=== PATIENT | male | born 1960 | race African-American/Black ===

== ENCOUNTER 2017-09-30 09:54 | Emergency (ER) | payer SELFPAY ==
[~2017-09-30] VITALS: Ht 180.3 cm; Wt 113.4 kg
[2017-09-30] MEDS ORDERED: PRAVACHOL40 MG PO (10:06)
[2017-09-30] MEDS ORDERED: LOPRESSOR25 MG PO (10:06)
[2017-09-30 10:25] LABS: BASO # 0.1 10*3/uL (0.0-0.1); BASO % 0.6 % (0.0-1.0); EOS # 0.4 10*3/uL (0.0-0.4); EOS % 3.4 % (1.0-4.0); HEMATOCRIT 45.3 % (42.0-52.0); HEMOGLOBIN 15.1 g/dl (14.0-18.0); LYMPH # 3.8 10*3/uL (1.3-4.4); LYMPH % 32.5 % (27.0-41.0); MEAN CELL VOLUME 83.4 fl (80.0-94.0); MEAN CORPUSCULAR HGB 27.8 pg (27.0-31.0); MEAN CORPUSCULAR HGB CONC 33.3 g/dl (33.0-37.0); MEAN PLATELET VOLUME 11.1 fl (9.6-12.3); MONO # 0.7 10*3/uL (0.1-1.0); MONO % 5.6 % (3.0-9.0); NEUT # 6.7 10*3/uL (2.3-7.9); NEUT % 57.7 % (47.0-73.0); PLATELET COUNT AUTOMATED 266 10*3/uL (130-400); RED BLOOD COUNT 5.43 10*6/uL (4.50-5.90); RED CELL DISTRI WIDTH 13.9 % (0-14.5); WHITE BLOOD COUNT 11.6 10*3/uL (4.8-10.8)
[2017-09-30 10:44] LABS: ALBUMIN 3.9 gm/dl (3.1-4.5); ALKALINE PHOSPHATASE 155 U/L (45-117); BUN 11 mg/dl (7-24); CHLORIDE 105 mmol/L (98-107); CREATININE 1.13 mg/dL (0.70-1.30); LIPASE 159 U/L (73-393); POTASSIUM 3.2 mmol/L (3.5-5.1); SGOT/AST 12 IU/L (3-35); SGPT/ALT 29 U/L (12-78); SODIUM 140 mmol/L (136-145); TOTAL PROTEIN 8.2 gm/dL (6.4-8.2)
[2017-09-30 11:16] LABS: BILIRUBIN NEGATIVE (NEGATIVE); BLOOD NEGATIVE (NEGATIVE); CLARITY CLEAR (CLEAR); COLOR YELLOW (YELLOW); GLUCOSE NEGATIVE (NEGATIVE); KETONE NEGATIVE (NEGATIVE); LEUKO ESTERASE NEGATIVE (NEGATIVE); NITRITE NEGATIVE (NEGATIVE); PH 6.5 (5.0-9.0); UROBILINOGEN 0.2 E.U./dl (0.2-1.0)
== END 2017-09-30 12:29 | disposition home or self-care (01) ==
LOC: ED 09:54
PROVIDERS: Emergency Medicine
DX: K46.9 Unspecified abdominal hernia without obstruction or gangrene (principal); Z79.899 Other long term (current) drug therapy

== ENCOUNTER → 2017-10-09 | Outpatient (CLI) | payer MEDICAID ==
[~2017-10-09] MED LIST: LOPRESSOR25 MG PO; PRAVACHOL40 MG PO
== END | disposition home or self-care (01) ==
LOC: RESCLI 02:22
DX: I10 Essential (primary) hypertension (principal); E78.5 Hyperlipidemia, unspecified; R73.03 Prediabetes; M54.5 Low back pain; J30.2 Other seasonal allergic rhinitis; F33.9 Major depressive disorder, recurrent, unspecified; F20.9 Schizophrenia, unspecified; K21.9 Gastro-esophageal reflux disease without esophagitis; G47.00 Insomnia, unspecified; Z80.42 Family history of malignant neoplasm of prostate

== ENCOUNTER → 2017-10-17 | Outpatient (CLI) | payer OTHER ==
[2017-10-17 12:30] LABS: HEMATOCRIT 44.2 % (42.0-52.0); HEMOGLOBIN 14.7 g/dl (14.0-18.0); MEAN CELL VOLUME 84.8 fl (80.0-94.0); MEAN CORPUSCULAR HGB 28.2 pg (27.0-31.0); MEAN CORPUSCULAR HGB CONC 33.3 g/dl (33.0-37.0); MEAN PLATELET VOLUME 11.4 fl (9.6-12.3); PLATELET COUNT AUTOMATED 271 10*3/uL (130-400); RED BLOOD COUNT 5.21 10*6/uL (4.50-5.90); RED CELL DISTRI WIDTH 13.8 % (0-14.5); WHITE BLOOD COUNT 9.4 10*3/uL (4.8-10.8)
[2017-10-17 12:53] LABS: ALBUMIN 3.9 gm/dl (3.1-4.5); BUN 7 mg/dl (7-24); CHLORIDE 107 mmol/L (98-107); CHOLESTEROL 89 mg/dL (<200); CREATININE 1.06 mg/dL (0.70-1.30); HDL CHOLESTEROL 32 mg/dl (40-60); LDL CHOLESTEROL 39 mg/dL (9-159); POTASSIUM 3.2 mmol/L (3.5-5.1); SGOT/AST 27 IU/L (3-35); SGPT/ALT 39 U/L (12-78); SODIUM 141 mmol/L (136-145); TRIGLYCERIDES 88 mg/dl (<150); VLDL CHOLESTEROL 18 mg/dL (6-40)
[2017-10-17 13:02] LABS: ALKALINE PHOSPHATASE 154 U/L (45-117); TOTAL PROTEIN 7.9 gm/dL (6.4-8.2)
[2017-10-17 13:28] LABS: ATYPICAL LYMPHS 1 % (0-0); PLATELET SUFFICIENCY NORMAL (NORMAL); TOTAL CELLS COUNTED 100 #CELLS
[2017-10-17 13:36] LABS: VITAMIN D, 25-HYDROXY 8.6 ng/mL (30-100)
== END | disposition home or self-care (01) ==
LOC: LAB 11:41
PROVIDERS: Family Medicine
DX: Z12.5 Encounter for screening for malignant neoplasm of prostate (principal); M54.5 Low back pain; R73.03 Prediabetes; E78.5 Hyperlipidemia, unspecified; Z80.42 Family history of malignant neoplasm of prostate

== ENCOUNTER 2017-10-26 11:16 | Emergency (ER) | payer OTHER ==
[~2017-10-26] VITALS: Ht 180.3 cm; Wt 114.3 kg
[2017-10-26 12:51] LABS: BILIRUBIN NEGATIVE (NEGATIVE); BLOOD NEGATIVE (NEGATIVE); CLARITY CLEAR (CLEAR); COLOR YELLOW (YELLOW); GLUCOSE NEGATIVE (NEGATIVE); KETONE NEGATIVE (NEGATIVE); LEUKO ESTERASE NEGATIVE (NEGATIVE); NITRITE NEGATIVE (NEGATIVE); PH 7.5 (5.0-9.0); SPECIFIC GRAVITY 1.015 (1.005-1.030); UROBILINOGEN 0.2 E.U./dl (0.2-1.0)
[2017-10-26 13:05] LABS: BACTERIA TRACE
[2017-10-26] MEDS ORDERED: FLOMAX0.4 MG PO (13:41)
[2017-10-26] MEDS ORDERED: Orphenadrine C100 MG PO (13:41)
[2017-10-26] MEDS ORDERED: NAPROSYN500 MG PO (13:41)
== END 2017-10-26 13:55 | disposition home or self-care (01) ==
LOC: ED 11:16
PROVIDERS: Emergency Medicine
DX: R30.0 Dysuria (principal); M54.16 Radiculopathy, lumbar region; F17.200 Nicotine dependence, unspecified, uncomplicated; Z79.899 Other long term (current) drug therapy

== ENCOUNTER → 2017-11-07 | Outpatient (CLI) | payer OTHER ==
[~2017-11-07] MED LIST changes: +FLOMAX0.4 MG PO; +NAPROSYN500 MG PO; +Orphenadrine C100 MG PO
== END | disposition home or self-care (01) ==
LOC: RESCLI 01:33
DX: I10 Essential (primary) hypertension (principal); E78.5 Hyperlipidemia, unspecified; R73.03 Prediabetes; M54.5 Low back pain; J30.2 Other seasonal allergic rhinitis; F33.9 Major depressive disorder, recurrent, unspecified; F20.9 Schizophrenia, unspecified; K21.9 Gastro-esophageal reflux disease without esophagitis; G47.00 Insomnia, unspecified; E55.9 Vitamin D deficiency, unspecified; E66.9 Obesity, unspecified; Z80.42 Family history of malignant neoplasm of prostate

== ENCOUNTER → 2017-11-14 | Outpatient (CLI) | payer OTHER | END | disposition home or self-care (01) | LOC: MRI 03:48 | DX: M54.5 Low back pain (principal); R10.9 Unspecified abdominal pain ==

== ENCOUNTER → 2018-02-05 | Outpatient (CLI) | payer OTHER ==
[~2018-02-05] MED LIST changes: +ASPIRIN CHEWABL81 MG PO; +K-TAB20 MEQ PO
== END | disposition home or self-care (01) ==
LOC: RESCLI 02:10
DX: I10 Essential (primary) hypertension (principal); K21.9 Gastro-esophageal reflux disease without esophagitis; E78.5 Hyperlipidemia, unspecified; E55.9 Vitamin D deficiency, unspecified; G47.00 Insomnia, unspecified; F20.9 Schizophrenia, unspecified; F33.9 Major depressive disorder, recurrent, unspecified; J30.2 Other seasonal allergic rhinitis; M54.5 Low back pain; J01.90 Acute sinusitis, unspecified

== ENCOUNTER 2018-02-22 09:00 | Inpatient (IN) | payer OTHER ==
[~2018-02-22] VITALS: Ht 180.3 cm; Wt 109.8 kg
--- NOTE | ~2018-02-22 | EKG ---
[place], [place] ELECTROCARDIOGRAM REPORT NAME: PENELOPE SMILEY UNIT #: [id number] ROOM: 506 DOCTOR: ROSHNI DRAFT REPORT BIRTHDATE: [birth year] [facility] Test Date: 2018-02-22 Test Time: 12:01:39 Pat Name: PENELOPE SMILEY Department: Room: Gender: Manager Business: : 1960 Requested By: GURU SANTIAGO Order Number: [id number] Reading MD: Hank Ayala MD Measurements Intervals [place] Rate: 59 P: 30 HI: 203 QRS: -22 QRSD: 95 T: 1 QT: 357 QTc: 354 Interpretive Statements Sinus rhythm Borderline left axis deviation RSR' in V1 or V2, probably normal variant Nonspecific ST-T changes Compared to previous tracing, no significant change Electronically Signed On 02-23-2018 14:40:15 PDT by Hank Ayala MD CM:EKGRPT:ELECTROCARDIOGRAM REPORT 1201 1440 GURU DERAS DRAFT REPORT GURU SANTIAGO DO
--- NOTE | ~2018-02-22 | EKG ---
[place], [place] ELECTROCARDIOGRAM REPORT NAME: PENELOPE SMILEY UNIT #: [id number] ROOM: 506 DOCTOR: ROSHNI DRAFT REPORT BIRTHDATE: [birth year] [facility] Test Date: 2018-02-23 Test Time: 10:20:11 Pat Name: PENELOPE SMILEY Department: Room: 506 1 Gender: M Sterile Processing Technician: : 1960 Requested By: LOWELL BAHENA Order Number: [id number] Reading MD: Hank Ayala MD Measurements Intervals [place] Rate: 65 P: 45 CT: 205 QRS: -20 QRSD: 90 T: 28 QT: 443 QTc: 461 Interpretive Statements Sinus rhythm Borderline prolonged CT interval Borderline left axis deviation Borderline T abnormalities, anterior leads Minimal ST elevation, anterior leads Baseline wander in lead(s) V4 Compared to 02/22/18, lateral ST-T changes are less prominent Electronically Signed On 02-23-2018 15:05:01 PDT by Hank Ayala MD CM:EKGRPT:ELECTROCARDIOGRAM REPORT 1020 1505 LOWELL DERAS DRAFT REPORT LOWELL BAHENA DO
--- NOTE | ~2018-02-22 | EKG ---
[place], [place] ELECTROCARDIOGRAM REPORT NAME: PENELOPE SMILEY UNIT #: [id number] ROOM: 506 DOCTOR: ROSHNI DRAFT REPORT BIRTHDATE: [birth year] [facility] Test Date: 2018-02-22 Test Time: 09:04:36 Pat Name: PENELOPE SMILEY Department: Room: Gender: Touch Up Worker: ANGIE : 1960 Requested By: GURU SANTIAGO Order Number: [id number] Reading MD: Hank Ayala MD Measurements Intervals [place] Rate: 70 P: 49 AL: 186 QRS: -26 QRSD: 117 T: 22 QT: 411 QTc: 444 Interpretive Statements Sinus rhythm Probable left atrial enlargement Minimal ST elevation, anterolateral leads Electronically Signed On 02-23-2018 14:33:53 PDT by Hank Ayala MD CM:EKGRPT:ELECTROCARDIOGRAM REPORT 0904 1433 GURU DERAS DRAFT REPORT GURU SANTIAGO DO
--- NOTE | ~2018-02-22 | EKG ---
[place], [place] ELECTROCARDIOGRAM REPORT NAME: PENELOPE SMILEY UNIT #: [id number] ROOM: 506 DOCTOR: ROSHNI DRAFT REPORT BIRTHDATE: [birth year] [facility] Test Date: 2018-02-22 Test Time: 15:48:30 Pat Name: PENELOPE SMILEY Department: Room: Gender: Chemistry Instructor: : 1960 Requested By: GURU SANTIAGO Order Number: [id number] Reading MD: Hank Ayala MD Measurements Intervals [place] Rate: 61 P: 53 ID: 197 QRS: -25 QRSD: 91 T: 31 QT: 428 QTc: 431 Interpretive Statements Sinus rhythm Borderline left axis deviation Nonspecific T abnrm, anterolateral leads Compared to previous tracing, no significant change Electronically Signed On 02-23-2018 14:43:18 PDT by Hank Ayala MD CM:EKGRPT:ELECTROCARDIOGRAM REPORT 1548 1443 GURU DERAS DRAFT REPORT GURU SANTIAGO DO
[~2018-02-22 09:00] MED LIST changes: -ASPIRIN CHEWABL81 MG PO; -CLARITIN10 MG PO; -K-TAB20 MEQ PO; -SEPTDS PO; -VITAMIN D31000 UNI1 PO
[2018-02-22 09:02] VITALS: BP 177/88
[2018-02-22] MEDS ORDERED: ASPIRIN CHEWABL81 MG PO (09:08)
[2018-02-22 09:17] LABS: BASO # 0.1 10*3/uL (0.0-0.1); BASO % 0.6 % (0.0-1.0); EOS # 0.5 10*3/uL (0.0-0.4); EOS % 3.6 % (1.0-4.0); HEMATOCRIT 44.1 % (42.0-52.0); HEMOGLOBIN 14.1 g/dl (14.0-18.0); LYMPH # 4.1 10*3/uL (1.3-4.4); LYMPH % 32.7 % (27.0-41.0); MEAN CORPUSCULAR HGB 27.5 pg (27.0-31.0); MONO # 0.6 10*3/uL (0.1-1.0); NEUT # 7.4 10*3/uL (2.3-7.9); NEUT % 57.9 % (47.0-73.0); PLATELET COUNT AUTOMATED 268 10*3/uL (130-400); RED BLOOD COUNT 5.13 10*6/uL (4.50-5.90); RED CELL DISTRI WIDTH 14.1 % (0-14.5); WHITE BLOOD COUNT 12.7 10*3/uL (4.8-10.8)
[2018-02-22 09:32] LABS: ALBUMIN 4.1 gm/dl (3.1-4.5); ALKALINE PHOSPHATASE 135 U/L (45-117); BUN 16 mg/dl (7-24); CHLORIDE 105 mmol/L (98-107); POTASSIUM 3.1 mmol/L (3.5-5.1); SGOT/AST 13 IU/L (3-35); SGPT/ALT 22 U/L (12-78); SODIUM 142 mmol/L (136-145); TOTAL PROTEIN 8.2 gm/dL (6.4-8.2)
[2018-02-22 09:33] LABS: TROPONIN I < 0.015 ng/ml (<0.045)
[2018-02-22 10:22] VITALS: BP 168/102
[2018-02-22 12:00] VITALS: BP 152/104
[2018-02-22 16:00] VITALS: BP 172/98
[2018-02-22 20:00] VITALS: BP 173/104
[2018-02-23] VITALS: BP 168/97
[2018-02-23 00:22] LABS: BILIRUBIN NEGATIVE (NEGATIVE); BLOOD NEGATIVE (NEGATIVE); CLARITY CLEAR (CLEAR); COLOR YELLOW (YELLOW); GLUCOSE NEGATIVE (NEGATIVE); KETONE NEGATIVE (NEGATIVE); LEUKO ESTERASE TRACE (NEGATIVE); NITRITE NEGATIVE (NEGATIVE); UROBILINOGEN 0.2 E.U./dl (0.2-1.0)
[2018-02-23 06:20] LABS: BASO # 0.1 10*3/uL (0.0-0.1); BASO % 0.6 % (0.0-1.0); EOS # 0.4 10*3/uL (0.0-0.4); EOS % 3.6 % (1.0-4.0); HEMATOCRIT 43.2 % (42.0-52.0); HEMOGLOBIN 13.7 g/dl (14.0-18.0); LYMPH # 3.3 10*3/uL (1.3-4.4); LYMPH % 30.4 % (27.0-41.0); MEAN CELL VOLUME 85.7 fl (80.0-94.0); MEAN CORPUSCULAR HGB 27.2 pg (27.0-31.0); MEAN CORPUSCULAR HGB CONC 31.7 g/dl (33.0-37.0); MEAN PLATELET VOLUME 11.8 fl (9.6-12.3); MONO # 0.7 10*3/uL (0.1-1.0); MONO % 6.7 % (3.0-9.0); NEUT # 6.3 10*3/uL (2.3-7.9); NEUT % 58.4 % (47.0-73.0); PLATELET COUNT AUTOMATED 246 10*3/uL (130-400); RED BLOOD COUNT 5.04 10*6/uL (4.50-5.90); RED CELL DISTRI WIDTH 14.1 % (0-14.5); WHITE BLOOD COUNT 10.8 10*3/uL (4.8-10.8)
[2018-02-23 06:46] LABS: ALBUMIN 3.6 gm/dl (3.1-4.5); ALKALINE PHOSPHATASE 125 U/L (45-117); BUN 13 mg/dl (7-24); CHLORIDE 106 mmol/L (98-107); CHOLESTEROL 117 mg/dL (<200); CREATININE 1.09 mg/dL (0.70-1.30); FREE T4 1.03 ng/dl (0.76-1.46); HDL CHOLESTEROL 30 mg/dl (40-60); LDL CHOLESTEROL 55 mg/dL (9-159); PHOSPHOROUS 2.6 mg/dL (2.5-4.9); POTASSIUM 2.8 mmol/L (3.5-5.1); SGOT/AST 12 IU/L (3-35); SGPT/ALT 19 U/L (12-78); SODIUM 144 mmol/L (136-145); TOTAL PROTEIN 7.6 gm/dL (6.4-8.2); TRIGLYCERIDES 158 mg/dl (<150); VLDL CHOLESTEROL 32 mg/dL (6-40)
[2018-02-23 06:50] LABS: ACT PARTIAL THROMBO TIME 27.1 SECONDS (20.8-31.5)
[2018-02-23 06:51] LABS: THYROID STIM HORMONE (HS) 0.626 uIU/ml (0.358-4.75)
[2018-02-23 07:53] LABS: VITAMIN D, 25-HYDROXY 25.7 ng/mL (30-100)
[2018-02-23 08:00] VITALS: BP 160/89
[2018-02-23 08:44] VITALS: BP 160/89
[2018-02-23] MEDS ORDERED: K-TAB20 MEQ PO (11:16)
[2018-02-23] MEDS ORDERED: LOPRESSOR25 MG PO (11:16)
[2018-02-23 12:53] VITALS: BP 152/116
[2018-03-13] MEDS ORDERED: CLARITIN10 MG PO (11:52)
[2018-03-13] MEDS ORDERED: VITAMIN D31000 UNI1 PO (11:52)
[2018-04-04] MEDS ORDERED: SEPTDS PO (13:38)
== END 2018-02-23 13:38 | disposition home or self-care (01) | DRG 206 ==
LOC: ED 09:00 → EDHOLD 09:26 → 5E 09:26
PROVIDERS: Emergency Medicine; Family Medicine; Internal Medicine
DX: M94.0 Chondrocostal junction syndrome [Tietze] (principal); R13.10 Dysphagia, unspecified; D72.829 Elevated white blood cell count, unspecified; E87.6 Hypokalemia; E78.5 Hyperlipidemia, unspecified; F12.10 Cannabis abuse, uncomplicated; R73.9 Hyperglycemia, unspecified; I10 Essential (primary) hypertension; K21.9 Gastro-esophageal reflux disease without esophagitis; K42.9 Umbilical hernia without obstruction or gangrene; J32.9 Chronic sinusitis, unspecified; R03.0 Elevated blood-pressure reading, without diagnosis of hypertension; Z87.891 Personal history of nicotine dependence; Z85.46 Personal history of malignant neoplasm of prostate; Z79.899 Other long term (current) drug therapy; Z79.82 Long term (current) use of aspirin; Z82.49 Family history of ischemic heart disease and other diseases of the circulatory system; Z84.1 Family history of disorders of kidney and ureter

== ENCOUNTER → 2018-02-22 | Outpatient (CLI) | payer OTHER ==
[~2018-02-22] MED LIST changes: +CLARITIN10 MG PO; +SEPTDS PO; +VITAMIN D31000 UNI1 PO
== END | disposition home or self-care (01) ==
LOC: RESCLI 04:22
DX: E78.5 Hyperlipidemia, unspecified (principal); I10 Essential (primary) hypertension; F33.9 Major depressive disorder, recurrent, unspecified; F20.9 Schizophrenia, unspecified; K21.9 Gastro-esophageal reflux disease without esophagitis; G47.00 Insomnia, unspecified; E55.9 Vitamin D deficiency, unspecified; E66.9 Obesity, unspecified; I20.0 Unstable angina; Z79.899 Other long term (current) drug therapy; Z87.891 Personal history of nicotine dependence; Z88.8 Allergy status to other drugs, medicaments and biological substances

== ENCOUNTER → 2018-03-08 | Outpatient (CLI) | payer OTHER ==
[~2018-03-08] MED LIST changes: +ASPIRIN CHEWABL81 MG PO; +CLARITIN10 MG PO; +K-TAB20 MEQ PO; +VITAMIN D31000 UNI1 PO
[2018-03-08 09:19] LABS: CREATININE 1.51 mg/dL (0.70-1.30); POTASSIUM 2.9 mmol/L (3.5-5.1)
== END | disposition home or self-care (01) ==
LOC: RESCLI 04:02 → LAB 04:02 → RESCLI 08:11
PROVIDERS: Internal Medicine
DX: E87.6 Hypokalemia (principal)

== ENCOUNTER → 2018-03-13 | Outpatient (CLI) | payer OTHER ==
--- NOTE | ~2018-03-13 | ST ---
[place], [place] EXERCISE STRESS TEST [facility]PORT [id number] UN[facility] #: [id number] ROOM: DOCTOR: IVAN WILSON MD BIRTHDATE: [birth year] DOS: 03/13/2018 EXERCISE/PHARMACOLOGIC MYOCARDIAL STRESS TEST INDICATIONS: Chest discomfort, precordial chest pain. PROCEDURE: The patient walked utilizing a full Marciano protocol for 7 minutes 20 seconds and stopped because of ankle pain. He had not achieved his maximum predicted heart rate and therefore he was given regadenoson at peak exercise. Forty seconds later, he was given radionuclide intravenously. He achieved a maximum heart rate of 111, which represented 67% of his maximum predicted heart rate. He did not reproduce his chest pain and had no diagnostic electrocardiographic changes. The resting blood pressure 146/98 lesly to 184/98 with exercise. He did achieve 10 METS of exertion. IMPRESSION: 1. Exercise capacity limited by orthopedic problems with his ankle. The patient did not have any chest pain or diagnostic electrocardiographic changes at the level of exercise achieved. 2. Regadenoson 0.4 mg given intravenously to complete the stress test. 3. Radionuclide administered. Please see the separate imaging report for further details of the patient's stress test results. IVAN WILSON MD CM:STRESS:EXERCISE STRESS TEST REPORT 1334 0535 IVAN WILSON MD
== END | disposition home or self-care (01) ==
LOC: CARD 01:15
DX: I20.0 Unstable angina (principal)

== ENCOUNTER → 2018-04-12 | Outpatient (CLI) | payer OTHER ==
[~2018-04-12] MED LIST changes: +ATORVASTATIN CA80 M1 PO; +OMEPRAZOLE D/R20 MG PO; +SEPTDS PO
== END | disposition home or self-care (01) ==
LOC: RESCLI 04:00
DX: I10 Essential (primary) hypertension (principal); E78.5 Hyperlipidemia, unspecified; F33.9 Major depressive disorder, recurrent, unspecified; E55.9 Vitamin D deficiency, unspecified; F20.9 Schizophrenia, unspecified; K21.9 Gastro-esophageal reflux disease without esophagitis; K43.9 Ventral hernia without obstruction or gangrene; G47.00 Insomnia, unspecified; J30.2 Other seasonal allergic rhinitis; E87.6 Hypokalemia; Z85.46 Personal history of malignant neoplasm of prostate; Z82.49 Family history of ischemic heart disease and other diseases of the circulatory system; Z80.42 Family history of malignant neoplasm of prostate; Z87.891 Personal history of nicotine dependence; Z79.899 Other long term (current) drug therapy

== ENCOUNTER 2018-06-14 13:15 | Emergency (ER) | payer OTHER ==
[~2018-06-14] VITALS: Ht 180.3 cm; Wt 108.9 kg
[~2018-06-14 13:15] MED LIST changes: -ATORVASTATIN CA80 M1 PO; -OMEPRAZOLE D/R20 MG PO
[2018-06-14 13:47] LABS: BASO % 0.2 % (0.0-1.0); EOS # 0.1 10*3/uL (0.0-0.4); EOS % 0.6 % (1.0-4.0); HEMATOCRIT 36.4 % (42.0-52.0); HEMOGLOBIN 12.2 g/dl (14.0-18.0); LYMPH # 1.8 10*3/uL (1.3-4.4); MEAN CELL VOLUME 82.7 fl (80.0-94.0); MEAN CORPUSCULAR HGB 27.7 pg (27.0-31.0); MEAN CORPUSCULAR HGB CONC 33.5 g/dl (33.0-37.0); MEAN PLATELET VOLUME 10.7 fl (9.6-12.3); MONO # 1.5 10*3/uL (0.1-1.0); NEUT # 11.6 10*3/uL (2.3-7.9); NEUT % 76.9 % (47.0-73.0); PLATELET COUNT AUTOMATED 226 10*3/uL (130-400); RED CELL DISTRI WIDTH 13.4 % (0-14.5); WHITE BLOOD COUNT 15.1 10*3/uL (4.8-10.8)
[2018-06-14 14:01] LABS: ALBUMIN 3.2 gm/dl (3.1-4.5); ALKALINE PHOSPHATASE 157 U/L (45-117); BUN 12 mg/dl (7-24); CHLORIDE 102 mmol/L (98-107); CREATININE 1.21 mg/dL (0.70-1.30); POTASSIUM 2.7 mmol/L (3.5-5.1); SGOT/AST 32 IU/L (3-35); SGPT/ALT 37 U/L (12-78); SODIUM 138 mmol/L (136-145); TOTAL PROTEIN 8.4 gm/dL (6.4-8.2)
[2018-06-14 14:23] LABS: BILIRUBIN NEGATIVE (NEGATIVE); BLOOD TRACE-INTACT (NEGATIVE); CLARITY SL CLOUDY (CLEAR); COLOR YELLOW (YELLOW); GLUCOSE NEGATIVE (NEGATIVE); KETONE NEGATIVE (NEGATIVE); LEUKO ESTERASE NEGATIVE (NEGATIVE); NITRITE NEGATIVE (NEGATIVE); PH 6.5 (5.0-9.0)
[2018-06-14 14:33] LABS: BACTERIA TRACE
== END 2018-06-14 18:06 | disposition home or self-care (01) ==
LOC: ED 13:15
PROVIDERS: Emergency Medicine
DX: R10.31 Right lower quadrant pain (principal); R11.10 Vomiting, unspecified; R61 Generalized hyperhidrosis; K21.9 Gastro-esophageal reflux disease without esophagitis; E78.5 Hyperlipidemia, unspecified; I10 Essential (primary) hypertension; Z79.899 Other long term (current) drug therapy; Z79.82 Long term (current) use of aspirin; Z87.891 Personal history of nicotine dependence

== ENCOUNTER 2018-06-21 12:20 | Emergency (ER) | payer OTHER ==
[~2018-06-21] VITALS: Ht 180.3 cm; Wt 90.7 kg
[2018-06-21 12:49] LABS: BASO # 0.1 10*3/uL (0.0-0.1); BASO % 0.4 % (0.0-1.0); EOS # 0.3 10*3/uL (0.0-0.4); EOS % 1.4 % (1.0-4.0); HEMOGLOBIN 10.8 g/dl (14.0-18.0); LYMPH # 2.2 10*3/uL (1.3-4.4); LYMPH % 11.9 % (27.0-41.0); MEAN CELL VOLUME 85.3 fl (80.0-94.0); MEAN CORPUSCULAR HGB 27.9 pg (27.0-31.0); MEAN CORPUSCULAR HGB CONC 32.7 g/dl (33.0-37.0); MEAN PLATELET VOLUME 10.2 fl (9.6-12.3); MONO # 1.2 10*3/uL (0.1-1.0); MONO % 6.6 % (3.0-9.0); NEUT # 14.4 10*3/uL (2.3-7.9); NEUT % 78.9 % (47.0-73.0); PLATELET COUNT AUTOMATED 381 10*3/uL (130-400); RED BLOOD COUNT 3.87 10*6/uL (4.50-5.90); RED CELL DISTRI WIDTH 14.4 % (0-14.5); WHITE BLOOD COUNT 18.3 10*3/uL (4.8-10.8)
[2018-06-21 12:55] LABS: BILIRUBIN 1+ (NEGATIVE); BLOOD NEGATIVE (NEGATIVE); CLARITY SL CLOUDY (CLEAR); COLOR YELLOW (YELLOW); GLUCOSE NEGATIVE (NEGATIVE); KETONE NEGATIVE (NEGATIVE); LEUKO ESTERASE NEGATIVE (NEGATIVE); NITRITE NEGATIVE (NEGATIVE); UROBILINOGEN 0.2 E.U./dl (0.2-1.0)
[2018-06-21 13:04] LABS: ALBUMIN 2.8 gm/dl (3.1-4.5); ALKALINE PHOSPHATASE 186 U/L (45-117); BUN 11 mg/dl (7-24); CHLORIDE 101 mmol/L (98-107); CREATININE 1.37 mg/dL (0.70-1.30); POTASSIUM 3.1 mmol/L (3.5-5.1); SGOT/AST 42 IU/L (3-35); SGPT/ALT 64 U/L (12-78); SODIUM 140 mmol/L (136-145); TOTAL PROTEIN 8.3 gm/dL (6.4-8.2)
[2018-06-21 13:08] LABS: EPITHELIAL CELLS 0-2; MUCOUS 3+
[2018-06-22] MEDS ORDERED: OMEPRAZOLE D/R20 MG PO (04:58)
[2018-06-22] MEDS ORDERED: ATORVASTATIN CA80 M1 PO (04:58)
== END 2018-06-22 10:46 | disposition short-term general hospital (02) ==
LOC: ED 12:20
PROVIDERS: Emergency Medicine
DX: R10.9 Unspecified abdominal pain (principal); R14.0 Abdominal distension (gaseous); K21.9 Gastro-esophageal reflux disease without esophagitis; E78.5 Hyperlipidemia, unspecified; I10 Essential (primary) hypertension; Z79.899 Other long term (current) drug therapy; Z79.82 Long term (current) use of aspirin; Z87.891 Personal history of nicotine dependence

== ENCOUNTER 2018-08-02 10:19 | Emergency (ER) | payer OTHER ==
[~2018-08-02] VITALS: Ht 180.3 cm; Wt 108.9 kg
[~2018-08-02 10:19] MED LIST changes: +ATORVASTATIN CA80 M1 PO; +OMEPRAZOLE D/R20 MG PO
[2018-08-02] MEDS ORDERED: SEPTDS PO (10:27)
[2018-08-02] MEDS ORDERED: KEFLEX500 M1 PO (10:27)
== END 2018-08-02 10:45 | disposition home or self-care (01) ==
LOC: ED 10:19
DX: L02.212 Cutaneous abscess of back [any part, except buttock and flank] (principal); I10 Essential (primary) hypertension; E78.5 Hyperlipidemia, unspecified; K21.9 Gastro-esophageal reflux disease without esophagitis; Z87.891 Personal history of nicotine dependence; Z79.899 Other long term (current) drug therapy; Z79.82 Long term (current) use of aspirin

== ENCOUNTER → 2018-08-22 | Outpatient (CLI) | payer OTHER ==
[~2018-08-22] MED LIST changes: +KEFLEX500 M1 PO
== END | disposition home or self-care (01) ==
LOC: RESCLI 03:07
DX: I10 Essential (primary) hypertension (principal); J30.2 Other seasonal allergic rhinitis; E55.9 Vitamin D deficiency, unspecified; F33.9 Major depressive disorder, recurrent, unspecified; E78.5 Hyperlipidemia, unspecified; K21.9 Gastro-esophageal reflux disease without esophagitis; E66.9 Obesity, unspecified; C61 Malignant neoplasm of prostate; E87.6 Hypokalemia; Z79.899 Other long term (current) drug therapy; Z87.891 Personal history of nicotine dependence

== ENCOUNTER → 2018-09-06 | Outpatient (CLI) | payer OTHER | END | disposition home or self-care (01) | LOC: RESCLI 02:54 | DX: C61 Malignant neoplasm of prostate (principal); J30.2 Other seasonal allergic rhinitis; E55.9 Vitamin D deficiency, unspecified; F33.9 Major depressive disorder, recurrent, unspecified; E78.5 Hyperlipidemia, unspecified; I10 Essential (primary) hypertension; K21.9 Gastro-esophageal reflux disease without esophagitis; E66.9 Obesity, unspecified; E87.6 Hypokalemia; Z79.899 Other long term (current) drug therapy; Z87.891 Personal history of nicotine dependence ==

== ENCOUNTER → 2019-02-03 | Outpatient (CLI) | payer OTHER ==
[~2019-02-03] MED LIST changes: +AMLODIPINE BESY10 MG PO; +ATORVASTATIN CA40 M1 PO; +GAVISCON ES TA1 EACH PO
== END | disposition home or self-care (01) ==
LOC: US 01-29 10:30
DX: M79.89 Other specified soft tissue disorders (principal)

== ENCOUNTER → 2019-03-07 | Day surgery (SDC) | payer OTHER ==
[~2019-03-07] VITALS: Ht 180.3 cm; Wt 118.8 kg
--- NOTE | ~2019-03-07 | O ---
[place], [place] OPERATIVE NOTE NAME: PENELOPE SMILEY UNIT #: [id number] ROOM: DOCTOR: MEGAN SANTOS MD BIRTHDATE: [birth year] DOS: 03/07/2019 GASTROENDOSCOPIC REPORT HISTORY OF PRESENT ILLNESS: The patient has presented with chief complaint of epigastric abdominal pain, dyspepsia, subxyphoid pain. The patient has been on omeprazole 20 on omeprazole 40 mg day. ALLERGIES: No known medication. PAST SURGICAL HISTORY: Prostate CA, robotic-assisted prostatectomy. PAST MEDICAL HISTORY: Hypertension, hyperlipidemia. SOCIAL HISTORY: Nonsmoker, social alcohol consumer. PROCEDURE: Today's procedure part of investigation is panendoscopy plus biopsy. PREMEDICATION: Propofol. SCOPE: Olympus forward-viewing gastroscope Q10 video. REPORT: After putting the patient in left lateral position and application of lubricant to the scope, the scope was introduced. Thereafter, under direct visualization, advanced through the length of esophagus without difficulty. Small hiatal hernia was noticed. Gastric pouch was entered. Gastritis was seen. Duodenal bulb, second and third part within normal limits. Antral biopsy obtained. The patient extubated, tolerated the procedure well. IMPRESSION: Mild gastritis, status post biopsy ruling out H. pylori. Small hiatal hernia. PLAN: High fiber fruit diet. ACTIVITY: Ad ranjit. Antireflux measures Gaviscon Extra Strength 1 at bedtime, and clinical reassessment. [place], [place] OPERATIVE NOTE NAME: PENELOPE SMILEY UNIT #: [id number] ROOM: DOCTOR: MEGAN SANTOS MD BIRTHDATE: [birth year] MEGAN SANTOS MD CM:OPRECORD:OPERATIVE NOTE 1443 1521 MEGAN SANTOS MD 03/07/19 1521 interface
[2019-03-07 13:11] VITALS: BP 140/78
[2019-03-07 14:43] VITALS: BP 170/82
[2019-03-07 14:58] VITALS: BP 146/90
[2019-03-07 15:08] VITALS: BP 140/82
== END | disposition home or self-care (01) ==
LOC: SDC 03-05 08:45
DX: K29.50 Unspecified chronic gastritis without bleeding (principal); K44.9 Diaphragmatic hernia without obstruction or gangrene; K31.89 Other diseases of stomach and duodenum; K21.9 Gastro-esophageal reflux disease without esophagitis; I10 Essential (primary) hypertension; E78.5 Hyperlipidemia, unspecified; E78.00 Pure hypercholesterolemia, unspecified; E66.9 Obesity, unspecified; Z68.36 Body mass index [BMI] 36.0-36.9, adult; Z72.89 Other problems related to lifestyle; Z79.899 Other long term (current) drug therapy; Z85.46 Personal history of malignant neoplasm of prostate; Z98.890 Other specified postprocedural states; Z85.47 Personal history of malignant neoplasm of testis; Z83.3 Family history of diabetes mellitus; Z82.49 Family history of ischemic heart disease and other diseases of the circulatory system

== ENCOUNTER → 2019-04-16 | Day surgery (SDC) | payer OTHER ==
[~2019-04-16] VITALS: Ht 180.3 cm; Wt 118.8 kg
--- NOTE | ~2019-04-16 | O ---
[place], [place] OPERATIVE NOTE NAME: PENELOPE SMILEY UNIT #: [id number] ROOM: DOCTOR: MEGAN SANTOS MD BIRTHDATE: [birth year] DOS: 04/16/2019 GASTROENDOSCOPIC REPORT INDICATIONS: A 59-year-old patient who has presented with a chief complaint of colonic screening, undergoing investigation. ALLERGIES: No known medications. FAMILY HISTORY: Noncontributory. PAST SURGICAL HISTORY: Prostatectomy robotic operation. PAST MEDICAL HISTORY: Hypertension, diabetes, hyperlipidemia, and prostate CA. SOCIAL HISTORY: Nonsmoker, social alcohol consumer. PROCEDURE: Today's procedure part of investigation is colonoscopy as well as polypectomy x 2. PREMEDICATION: Propofol. SCOPE: Olympus forward-viewing colonoscope 10L video. REPORT: After putting the patient in left lateral position and application of lubricant to the scope, the scope was introduced. Thereafter, under direct visualization, advanced through the length of colon without difficulty. Base of the cecum explored, appendiceal orifice identified, ileocecal valve was defined. Scope was gradually withdrawn from ascending, transverse, descending colon at sigmoid colon 2 polypoid lesions, piecemeal polypectomy was done and removed. The patient extubated, tolerated the procedure well. IMPRESSION: Sessile polypoid lesions in sigmoid colon, status post piecemeal polypectomy. PLAN: High fiber diet. ACTIVITY: Ad ranjit. FOLLOWUP: As outpatient. Thank you very much indeed. [place], [place] OPERATIVE NOTE NAME: PENELOPE SMILEY UNIT #: [id number] ROOM: DOCTOR: MEGAN SANTOS MD BIRTHDATE: [birth year] MEGAN SATNOS MD CM:OPRECORD:OPERATIVE NOTE 3 MEGAN SANTOS MD 04/16/1951 interface
[2019-04-16 07:46] VITALS: BP 153/93
[2019-04-16 08:40] VITALS: BP 142/90
[2019-04-16 08:54] VITALS: BP 143/92
[2019-04-16 09:09] VITALS: BP 163/96
== END | disposition home or self-care (01) ==
LOC: SDC 04-11 11:00
DX: Z12.11 Encounter for screening for malignant neoplasm of colon (principal); I10 Essential (primary) hypertension; E11.9 Type 2 diabetes mellitus without complications; E78.5 Hyperlipidemia, unspecified; Z85.46 Personal history of malignant neoplasm of prostate; Z98.890 Other specified postprocedural states; D12.5 Benign neoplasm of sigmoid colon; K21.9 Gastro-esophageal reflux disease without esophagitis; Z83.3 Family history of diabetes mellitus; Z82.49 Family history of ischemic heart disease and other diseases of the circulatory system

== ENCOUNTER → 2019-09-01 | Outpatient (CLI) | payer OTHER | END | disposition home or self-care (01) | LOC: US 14:31 | DX: I12.9 Hypertensive chronic kidney disease with stage 1 through stage 4 chronic kidney disease, or unspecified chronic kidney disease (principal); N18.3 Chronic kidney disease, stage 3 (moderate) ==

== ENCOUNTER → 2019-09-16 | Outpatient (CLI) | payer OTHER | END | disposition home or self-care (01) | LOC: CT 13:24 | DX: N20.0 Calculus of kidney (principal) ==

== ENCOUNTER → 2019-10-03 | Outpatient (CLI) | payer OTHER | END | disposition home or self-care (01) | LOC: RAD 09:11 | DX: M25.522 Pain in left elbow (principal) ==

== ENCOUNTER → 2019-11-03 | Outpatient (CLI) | payer OTHER | END | disposition home or self-care (01) | LOC: US 10:42 | DX: R59.9 Enlarged lymph nodes, unspecified (principal) ==

== ENCOUNTER → 2020-01-22 | Outpatient (CLI) | payer OTHER | END | disposition home or self-care (01) | LOC: CARD 10:48 | DX: R60.9 Edema, unspecified (principal) ==

== ENCOUNTER → 2020-03-17 | Outpatient (CLI) | payer OTHER | END | disposition home or self-care (01) | LOC: US 08:19 | DX: R14.0 Abdominal distension (gaseous) (principal); R60.0 Localized edema ==

== ENCOUNTER → 2020-06-04 | Outpatient (CLI) | payer OTHER ==
[2020-06-04 09:14] LABS: BASO # 0.1 10*3/uL (0.0-0.1); BASO % 0.6 % (0.0-1.0); EOS # 0.6 10*3/uL (0.0-0.4); EOS % 5.2 % (1.0-4.0); HEMATOCRIT 45.2 % (42.0-52.0); LYMPH # 3.3 10*3/uL (1.3-4.4); LYMPH % 28.5 % (27.0-41.0); MEAN CELL VOLUME 83.9 fl (80.0-94.0); MEAN CORPUSCULAR HGB 26.3 pg (27.0-31.0); MEAN CORPUSCULAR HGB CONC 31.4 g/dl (33.0-37.0); MEAN PLATELET VOLUME 11.1 fl (9.6-12.3); MONO # 0.7 10*3/uL (0.1-1.0); NEUT # 6.9 10*3/uL (2.3-7.9); NEUT % 59.4 % (47.0-73.0); PLATELET COUNT AUTOMATED 294 10*3/uL (130-400); RED BLOOD COUNT 5.39 10*6/uL (4.50-5.90); RED CELL DISTRI WIDTH 14.4 % (0-14.5); WHITE BLOOD COUNT 11.6 10*3/uL (4.8-10.8)
[2020-06-04 09:36] LABS: BILIRUBIN Negative (Negative); BLOOD Negative (Negative); CLARITY Clear (Clear); COLOR Yellow (Yellow); GLUCOSE Negative (Negative); KETONE Negative (Negative); LEUKO ESTERASE Negative (Negative); NITRITE Negative (Negative); SPECIFIC GRAVITY 1.015 (1.001-1.030)
[2020-06-04 09:40] LABS: ALBUMIN 3.8 gm/dl (3.1-4.5); BUN 12 mg/dl (7-24); CHLORIDE 109 mmol/L (98-107); CREATININE 1.14 mg/dL (0.70-1.30); POTASSIUM 3.1 mmol/L (3.5-5.1); SODIUM 144 mmol/L (136-145)
[2020-06-04 10:18] LABS: PTH INTACT 79.2 pg/mL (18.5-88.0); VITAMIN D, 25-HYDROXY 77.3 ng/mL (30-100)
== END | disposition home or self-care (01) ==
LOC: LAB 08:35
PROVIDERS: ATTEND Internal Medicine Nephrology
DX: N18.2 Chronic kidney disease, stage 2 (mild) (principal); E87.6 Hypokalemia; N25.81 Secondary hyperparathyroidism of renal origin

== ENCOUNTER → 2020-07-06 | Outpatient (CLI) | payer OTHER ==
[2020-07-06 08:23] LABS: BASO # 0.1 10*3/uL (0.0-0.1); BASO % 0.5 % (0.0-1.0); EOS # 0.5 10*3/uL (0.0-0.4); EOS % 4.5 % (1.0-4.0); HEMATOCRIT 44.7 % (42.0-52.0); LYMPH # 3.4 10*3/uL (1.3-4.4); LYMPH % 28.5 % (27.0-41.0); MEAN CELL VOLUME 85.6 fl (80.0-94.0); MEAN CORPUSCULAR HGB 27.2 pg (27.0-31.0); MEAN CORPUSCULAR HGB CONC 31.8 g/dl (33.0-37.0); MEAN PLATELET VOLUME 11.7 fl (9.6-12.3); MONO # 0.7 10*3/uL (0.1-1.0); NEUT # 7.3 10*3/uL (2.3-7.9); NEUT % 60.3 % (47.0-73.0); PLATELET COUNT AUTOMATED 302 10*3/uL (130-400); RED BLOOD COUNT 5.22 10*6/uL (4.50-5.90); RED CELL DISTRI WIDTH 14.6 % (0-14.5)
[2020-07-06 08:31] LABS: BILIRUBIN Negative (Negative); BLOOD Negative (Negative); CLARITY Clear (Clear); COLOR Yellow (Yellow); GLUCOSE Negative (Negative); KETONE Negative (Negative); LEUKO ESTERASE Negative (Negative); NITRITE Negative (Negative); PH 5.5 (4.5-8.0); SPECIFIC GRAVITY 1.025 (1.001-1.030); UROBILINOGEN 0.2 E.U./dl (0.0-1.0)
[2020-07-06 08:52] LABS: ALBUMIN 3.9 gm/dl (3.1-4.5); CREATININE 1.51 mg/dL (0.70-1.30); POTASSIUM 4.1 mmol/L (3.5-5.1)
[2020-07-06 09:08] LABS: PTH INTACT 72.7 pg/mL (18.5-88.0)
[2020-07-06 10:19] LABS: MUCOUS 1+; WBC 0-2 wbc/hpf (0-5)
== END | disposition home or self-care (01) ==
LOC: LAB 07:41
PROVIDERS: ATTEND Internal Medicine Nephrology
DX: I12.9 Hypertensive chronic kidney disease with stage 1 through stage 4 chronic kidney disease, or unspecified chronic kidney disease (principal); N18.2 Chronic kidney disease, stage 2 (mild); N25.81 Secondary hyperparathyroidism of renal origin; E87.6 Hypokalemia

== ENCOUNTER → 2020-10-08 | Outpatient (CLI) | payer OTHER ==
[2020-10-08 08:13] LABS: BASO # 0.1 10*3/uL (0.0-0.1); BASO % 0.7 % (0.0-1.0); EOS # 0.7 10*3/uL (0.0-0.4); HEMATOCRIT 43.6 % (42.0-52.0); LYMPH # 3.8 10*3/uL (1.3-4.4); LYMPH % 28.4 % (27.0-41.0); MEAN CELL VOLUME 86.9 fl (80.0-94.0); MEAN CORPUSCULAR HGB 27.7 pg (27.0-31.0); MEAN CORPUSCULAR HGB CONC 31.9 g/dl (33.0-37.0); MEAN PLATELET VOLUME 10.9 fl (9.6-12.3); MONO # 0.9 10*3/uL (0.1-1.0); MONO % 6.5 % (3.0-9.0); NEUT # 7.9 10*3/uL (2.3-7.9); PLATELET COUNT AUTOMATED 283 10*3/uL (130-400); RED BLOOD COUNT 5.02 10*6/uL (4.50-5.90); RED CELL DISTRI WIDTH 14.5 % (0-14.5); WHITE BLOOD COUNT 13.4 10*3/uL (4.8-10.8)
[2020-10-08 08:18] LABS: BILIRUBIN Negative (Negative); BLOOD Negative (Negative); CLARITY Clear (Clear); COLOR Yellow (Yellow); GLUCOSE Negative (Negative); KETONE Negative (Negative); LEUKO ESTERASE Negative (Negative); NITRITE Negative (Negative); PH 6.5 (4.5-8.0); UROBILINOGEN 0.2 E.U./dl (0.0-1.0)
[2020-10-08 08:40] LABS: EPITHELIAL CELLS 0-2; MUCOUS 1+; WBC 0-2 wbc/hpf (0-5)
[2020-10-08 08:44] LABS: ALBUMIN 3.9 gm/dl (3.1-4.5); ALKALINE PHOSPHATASE 152 U/L (45-117); BUN 15 mg/dl (7-24); CHLORIDE 110 mmol/L (98-107); CHOLESTEROL 141 mg/dL (<200); CREATININE 1.33 mg/dL (0.70-1.30); HDL CHOLESTEROL 42 mg/dl (40-60); LDL CHOLESTEROL 75 mg/dL (9-159); POTASSIUM 3.8 mmol/L (3.5-5.1); SGOT/AST 11 IU/L (3-35); SGPT/ALT 26 U/L (12-78); SODIUM 141 mmol/L (136-145); TOTAL PROTEIN 8.5 gm/dL (6.4-8.2); TRIGLYCERIDES 118 mg/dl (<150); VLDL CHOLESTEROL 24 mg/dL (6-40)
== END | disposition home or self-care (01) ==
LOC: LAB 07:50
PROVIDERS: ATTEND Internal Medicine Nephrology
DX: M48.02 Spinal stenosis, cervical region (principal); E11.22 Type 2 diabetes mellitus with diabetic chronic kidney disease; N18.2 Chronic kidney disease, stage 2 (mild); M25.78 Osteophyte, vertebrae

== ENCOUNTER → 2020-11-04 | Outpatient (CLI) | payer OTHER | END | disposition home or self-care (01) | LOC: US 09:38 | PROVIDERS: ATTEND Family Medicine | DX: E04.1 Nontoxic single thyroid nodule (principal) ==

== ENCOUNTER → 2020-12-27 | Outpatient (CLI) | payer OTHER ==
[2020-12-27 09:01] LABS: BASO # 0.1 10*3/uL (0.0-0.1); BASO % 0.8 % (0.0-1.0); EOS # 0.6 10*3/uL (0.0-0.4); EOS % 5.3 % (1.0-4.0); HEMATOCRIT 43.3 % (42.0-52.0); LYMPH % 27.3 % (27.0-41.0); MEAN CELL VOLUME 86.1 fl (80.0-94.0); MEAN CORPUSCULAR HGB CONC 32.6 g/dl (33.0-37.0); MEAN PLATELET VOLUME 11.8 fl (9.6-12.3); MONO # 0.7 10*3/uL (0.1-1.0); NEUT # 6.6 10*3/uL (2.3-7.9); NEUT % 60.2 % (47.0-73.0); PLATELET COUNT AUTOMATED 306 10*3/uL (130-400); RED BLOOD COUNT 5.03 10*6/uL (4.50-5.90); RED CELL DISTRI WIDTH 13.7 % (0-14.5)
[2020-12-27 09:02] LABS: BILIRUBIN Negative (Negative); BLOOD Negative (Negative); CLARITY Clear (Clear); COLOR Yellow (Yellow); GLUCOSE Negative (Negative); KETONE Trace (Negative); LEUKO ESTERASE Negative (Negative); NITRITE Negative (Negative); PH 5.5 (4.5-8.0); UROBILINOGEN 0.2 E.U./dl (0.0-1.0)
[2020-12-27 09:27] LABS: BACTERIA 1+; EPITHELIAL CELLS 0-2; MUCOUS 2+; RBC 0-2 rbc/hpf (0-2); WBC 0-2 wbc/hpf (0-5)
[2020-12-27 09:36] LABS: ALBUMIN 3.7 gm/dl (3.1-4.5); BUN 10 mg/dl (7-24); CHLORIDE 112 mmol/L (98-107); CREATININE 1.29 mg/dL (0.70-1.30); POTASSIUM 3.7 mmol/L (3.5-5.1); SODIUM 142 mmol/L (136-145)
[2020-12-27 09:47] LABS: PTH INTACT 64.4 pg/mL (18.5-88.0); VITAMIN D, 25-HYDROXY 45.2 ng/mL (30-100)
== END | disposition home or self-care (01) ==
LOC: LAB 08:10
PROVIDERS: ATTEND Internal Medicine Nephrology
DX: I12.9 Hypertensive chronic kidney disease with stage 1 through stage 4 chronic kidney disease, or unspecified chronic kidney disease (principal); N18.2 Chronic kidney disease, stage 2 (mild); N25.81 Secondary hyperparathyroidism of renal origin

== ENCOUNTER → 2021-02-07 | Outpatient (CLI) | payer OTHER | END | disposition home or self-care (01) | LOC: US 02-02 12:00 → CT 02-02 13:00 → US 09:53 | PROVIDERS: ATTEND Family Medicine | DX: E04.1 Nontoxic single thyroid nodule (principal); K43.9 Ventral hernia without obstruction or gangrene ==

== ENCOUNTER → 2021-08-30 | Outpatient (CLI) | payer OTHER | END | disposition home or self-care (01) | LOC: RAD 07:49 | PROVIDERS: ATTEND Family Medicine | DX: J98.11 Atelectasis (principal) ==

== ENCOUNTER → 2021-12-06 | Outpatient (CLI) | payer OTHER ==
[2021-12-06 09:27] LABS: BILIRUBIN Negative (Negative); BLOOD Negative (Negative); CLARITY Clear (Clear); COLOR Dark Yellow (Yellow); GLUCOSE Negative (Negative); KETONE Trace (Negative); LEUKO ESTERASE Trace (Negative); NITRITE Negative (Negative); PH 5.5 (4.5-8.0); SPECIFIC GRAVITY >= 1.030 (1.001-1.030)
[2021-12-06 09:38] LABS: CREATININE 1.51 mg/dL (0.70-1.30); POTASSIUM 3.4 mmol/L (3.5-5.1)
[2021-12-06 09:38] LABS: EPITHELIAL CELLS 0-2; MUCOUS 4+
[2021-12-06 10:07] LABS: VITAMIN D, 25-HYDROXY 37.2 ng/mL (30-100)
== END | disposition home or self-care (01) ==
LOC: LAB 08:59
PROVIDERS: ATTEND Internal Medicine Nephrology
DX: I12.9 Hypertensive chronic kidney disease with stage 1 through stage 4 chronic kidney disease, or unspecified chronic kidney disease (principal); N25.81 Secondary hyperparathyroidism of renal origin; N18.2 Chronic kidney disease, stage 2 (mild)

== ENCOUNTER → 2022-01-18 | Outpatient (CLI) | payer OTHER | END | disposition home or self-care (01) | LOC: RAD 08:06 | PROVIDERS: ATTEND Family Medicine | DX: R07.81 Pleurodynia (principal) ==

== ENCOUNTER → 2022-06-06 | Outpatient (CLI) | payer OTHER | END | disposition home or self-care (01) | LOC: CT 10:09 | PROVIDERS: ATTEND Family Medicine | DX: L76.82 Other postprocedural complications of skin and subcutaneous tissue (principal); K43.9 Ventral hernia without obstruction or gangrene; Z90.49 Acquired absence of other specified parts of digestive tract ==

== ENCOUNTER → 2022-09-08 | Outpatient (CLI) | payer OTHER ==
[2022-09-08 09:44] LABS: BASO # 0.1 10*3/uL (0.0-0.1); BASO % 0.7 % (0.0-1.0); EOS # 0.6 10*3/uL (0.0-0.4); EOS % 4.1 % (1.0-4.0); HEMATOCRIT 46.9 % (42.0-52.0); LYMPH # 3.6 10*3/uL (1.3-4.4); LYMPH % 26.1 % (27.0-41.0); MEAN CELL VOLUME 84.5 fl (80.0-94.0); MEAN CORPUSCULAR HGB 26.8 pg (27.0-31.0); MEAN CORPUSCULAR HGB CONC 31.8 g/dl (33.0-37.0); MEAN PLATELET VOLUME 11.1 fl (9.6-12.3); MONO # 0.7 10*3/uL (0.1-1.0); MONO % 5.4 % (3.0-9.0); NEUT # 8.6 10*3/uL (2.3-7.9); NEUT % 63.4 % (47.0-73.0); PLATELET COUNT AUTOMATED 289 10*3/uL (130-400); RED BLOOD COUNT 5.55 10*6/uL (4.50-5.90); RED CELL DISTRI WIDTH 14.6 % (0-14.5); WHITE BLOOD COUNT 13.6 10*3/uL (4.8-10.8)
[2022-09-08 10:00] LABS: ALKALINE PHOSPHATASE 131 U/L (46-116); BUN 14 mg/dl (9-23); CHLORIDE 103 mmol/L (98-107); POTASSIUM 3.4 mmol/L (3.4-5.1); SGPT/ALT 19 U/L (10-49)
== END | disposition home or self-care (01) ==
LOC: LAB 08:57
PROVIDERS: Student in an Organized Health Care Education/Training Program; ATTEND Family Medicine
DX: Z13.1 Encounter for screening for diabetes mellitus (principal); R06.00 Dyspnea, unspecified

== ENCOUNTER → 2022-10-02 | Day surgery (SDC) | payer OTHER ==
[~2022-10-02] VITALS: Ht 180.3 cm; Wt 120.7 kg
[~2022-10-02] MED LIST changes: +CARAFATE1 G1 PO
[2022-10-02 08:59] VITALS: BP 141/78
[2022-10-02 09:36] VITALS: BP 114/75
[2022-10-02 10:04] VITALS: BP 123/80
== END | disposition home or self-care (01) ==
LOC: SDC 09-28 14:00
PROVIDERS: ATTEND Surgery
DX: Z12.11 Encounter for screening for malignant neoplasm of colon (principal); K29.50 Unspecified chronic gastritis without bleeding; I10 Essential (primary) hypertension; E78.00 Pure hypercholesterolemia, unspecified; K21.9 Gastro-esophageal reflux disease without esophagitis; F20.9 Schizophrenia, unspecified; F31.9 Bipolar disorder, unspecified; F41.9 Anxiety disorder, unspecified; E11.9 Type 2 diabetes mellitus without complications; Z85.46 Personal history of malignant neoplasm of prostate; Z87.891 Personal history of nicotine dependence; Z98.890 Other specified postprocedural states; Z90.79 Acquired absence of other genital organ(s)

== ENCOUNTER → 2022-10-17 | Outpatient (CLI) | payer OTHER | END | disposition home or self-care (01) | LOC: LAB 10-16 01:22 | PROVIDERS: ATTEND Student in an Organized Health Care Education/Training Program | DX: R39.15 Urgency of urination (principal) ==

== ENCOUNTER → 2022-12-08 | Outpatient (CLI) | payer OTHER ==
[2022-12-08 08:35] LABS: BILIRUBIN Negative (Negative); BLOOD Negative (Negative); CLARITY Clear (Clear); COLOR Yellow (Yellow); GLUCOSE Negative (Negative); KETONE Trace (Negative); LEUKO ESTERASE Negative (Negative); NITRITE Negative (Negative); SPECIFIC GRAVITY >= 1.030 (1.001-1.030)
[2022-12-08 08:35] LABS: BASO # 0.1 10*3/uL (0.0-0.1); BASO % 0.6 % (0.0-1.0); EOS # 0.3 10*3/uL (0.0-0.4); EOS % 3.1 % (1.0-4.0); HEMATOCRIT 44.6 % (42.0-52.0); LYMPH # 2.9 10*3/uL (1.3-4.4); LYMPH % 26.6 % (27.0-41.0); MEAN CELL VOLUME 85.1 fl (80.0-94.0); MEAN CORPUSCULAR HGB 27.1 pg (27.0-31.0); MEAN CORPUSCULAR HGB CONC 31.8 g/dl (33.0-37.0); MEAN PLATELET VOLUME 10.8 fl (9.6-12.3); MONO # 0.6 10*3/uL (0.1-1.0); MONO % 5.5 % (3.0-9.0); NEUT # 6.9 10*3/uL (2.3-7.9); NEUT % 63.9 % (47.0-73.0); PLATELET COUNT AUTOMATED 285 10*3/uL (130-400); RED BLOOD COUNT 5.24 10*6/uL (4.50-5.90); RED CELL DISTRI WIDTH 14.3 % (0-14.5); WHITE BLOOD COUNT 10.8 10*3/uL (4.8-10.8)
[2022-12-08 09:03] LABS: URINE CREATININE RANDOM 411.04 mg/dL
[2022-12-08 09:16] LABS: BUN 9 mg/dl (9-23); CHLORIDE 105 mmol/L (98-107); POTASSIUM 3.5 mmol/L (3.4-5.1)
[2022-12-08 11:36] LABS: MUCOUS 1+; RBC 0-2 rbc/hpf (0-2)
== END | disposition home or self-care (01) ==
LOC: LAB 01:04
PROVIDERS: ATTEND Internal Medicine Nephrology
DX: N18.2 Chronic kidney disease, stage 2 (mild) (principal); N25.81 Secondary hyperparathyroidism of renal origin

== ENCOUNTER → 2023-03-26 | Outpatient (CLI) | payer OTHER ==
[~2023-03-26] MED LIST changes: +ALDACTONE25 M1 PO; +CETIRIZINE10 MG PO; +OMEPRAZOLE40 MG PO; -VITAMIN D31000 UNI1 PO; +VITAMIN D31250 MCG PO
== END | disposition home or self-care (01) ==
LOC: CARD 02:27
PROVIDERS: ATTEND Internal Medicine Cardiovascular Disease
DX: R07.89 Other chest pain (principal)

== ENCOUNTER → 2023-04-24 | Outpatient (CLI) | payer OTHER | END | disposition home or self-care (01) | LOC: CARD 01:20 | PROVIDERS: ATTEND Internal Medicine Cardiovascular Disease | DX: R07.89 Other chest pain (principal) ==